=== PATIENT | female | born 1995 | race Caucasian/White ===

== ENCOUNTER 2019-07-18 21:08 | Emergency (ER) | payer MEDICAID, SELFPAY ==
[2019-07-18 21:22] VITALS: BP 105/67; PULSE 93; RESP 18; TEMP 36.6; O2SAT 99; BMI 30.9
--- NOTE | 2019-07-18 21:33 | ED_ITS ---
Entered by Callie Manzanares, acting as scribe for Jose Carlos Michel DO HPI - Female Genitourinary General: Chief complaint: Urogenital-Female Stated complaint: PREG & CRAMPING Time Seen by Provider: 07/18/19 21:33 Source: patient Mode of arrival: ambulatory Limitations: no limitations History of Present Illness: HPI Narrative: 24 y/o female presents to the ED with complaint of abd cramping. Pt states she knows she is 6.5 weeks . She states she has PCOS and this is her first . She denies bleeding. Pt states this has been going on for 3 days but it seems to be worse today. She reports bloating and diarrhea. Associated symptoms: Reports abdominal pain (cramping); Deny headache(s) or nausea Review of Systems Const: Denies: fever or chills Eyes: Denies: change in vision or blurry vision ENMT: Denies: painful swallowing, swelling of lips/tongue, bleeding gums, dental pain, Change in hearing, nose bleeds, post nasal drip or facial/sinus pain Card: Denies: chest pain, palpitations, irregular heart rhythm, edema, swelling of feet/ankles, shortness of breath on exertion or shortness of breath when lying down Resp: Denies: shortness of breath, productive cough, non-productive cough or wheezing GI: Reports: abdominal pain (cramping) and diarrhea; Denies: nausea, vomiting, rectal pain, blood in stool or black tarry stool : Denies: painful urination, urinary frequency, urinary urgency or blood in urine Musc: Denies: neck pain, back pain, redness or joint warmth Skin/Breast: Denies: rash, itching or redness Neuro: Denies: headache, dizziness, vertigo, confusion or seizure-like activity Psych: Denies: anxiety, visual hallucinations or auditory hallucinations PFSH ED PFSH: Statuses (acute, chronic, etc) shown below reflect problem list status as previously entered and may not be historically accurate Social History Smoking and tobacco status: current every day smoker Physical Exam Const: COMMON NORMALS: alert GENERAL APPEARANCE: well developed ORIENTATION/CONSCIOUSNESS: Yes awake, Yes oriented to person, Yes oriented to place and Yes oriented to time HENMT: COMMON NORMALS: normocephalic, external ears normal, external nose normal and moist oral mucous membranes HEAD & SCALP: normocephalic; no scalp tenderness FACE & SINUS: normal facial exam NOSE: external nose normal and no nasal discharge EXTERNAL EAR: Yes external ears normal MOUTH: tongue normal TEETH & GINGIVA: no abnormal tooth and associated gingiva THROAT: posterior oropharynx normal; no peritonsillar mass Eye: COMMON NORMALS: PERRL, EOMs intact bilaterally and conjunctivae normal EYELID: eyelids normal CONJUNCTIVA: Yes conjunctivae normal PUPIL: Yes PERRL Neck/C-Spine: COMMON NORMALS: full ROM GENERAL: No tracheal deviation CERVICAL SPINE: Yes normal cervical lordosis, No cervical spine tenderness, No step off deformity, No paracervical muscle tenderness and No paracervical muscle spasm Chest: COMMONS NORMALS: inspection of chest normal CHEST: Yes symmetrical chest wall rise and No tenderness Resp: COMMON NORMALS: clear to auscultation bilaterally EFFORT & INSPECTION: No tachypneic, No respiratory distress, No retractions, No uses accessory muscles and No tracheal deviation AUSCULTATION: clear to auscultation bilaterally, no rhonchi, no wheezes and lung sounds not diminished Cardio: COMMON NORMALS: regular rate and regular rhythm RATE: regular rate RHYTHM: regular rhythm HEART SOUNDS: no murmurs PERIPHERAL PULSES: radial pulses present GI: INSPECTION: No abdominal distension AUSCULTATION: No hyperactive bowel sounds and No hypoactive bowel sounds PALPATION: No tender, No guarding and No rigid PERCUSSION: no dullness to percussion and no tympanic to percussion : COMMON NORMALS: Yes no CVA tenderness BLADDER/KIDNEY EXAM: Yes no CVA tenderness Back/Pelvis: COMMON NORMALS: no CVA tenderness PELVIS: Yes no pain with anterior-posterior compression and Yes no pain with lateral compression Neuro: SENSORIUM/ORIENTATION: Yes alert, Yes oriented to person, Yes oriented to place and Yes oriented to time Psych: COMMON NORMALS: mental status grossly normal and speech normal SPEECH: Yes normal speech Skin: COMMON NORMALS: no rashes or lesions noted GENERAL SKIN EXAM: no rashes or lesions noted Course ED course: 24-year-old now G1, P0 female presents believing she 6-1/2 weeks . She had been cramping, without vaginal discharge or bleeding. Serum quantitative, and ultrasound dates are similar at 4-1/2 weeks. There is a tiny gestational sac appearing structure in the uterus, showing a likely an IUP, although ectopic cannot be fully ruled out at this age. Other laboratory is benign. She will go home for close outpatient follow-up. Vital Signs: Vital signs: Vital Signs Temperature 98 F 07/18/19 21:22 Pulse Rate 73 07/18/19 23:54 Respiratory Rate 16 07/18/19 23:54 Blood Pressure 95/69 07/18/19 23:54 Pulse Oximetry 99 07/18/19 23:54 MDM - Female Lab Data: Labs: Lab Results 07/18/19 07/18/19 07/18/19 Range/Units 22:07 22:07 22:13 WBC 9.2 (4.0-10.0) 10^3/ uL RBC 4.69 (4.1-5.3) 10^6/u L Hgb 13.3 (11.5-15.3) g/dL Hct 41.7 (37.0-47.0) % MCV 88.9 (81-99) fL MCH 28.4 (28.0-34.0) pg MCHC 31.9 (30.0-36.0) g/dL RDW 11.8 L (12.1-15.1) % Plt Count 342 (130-400) 10^3/c mm MPV 9.3 (7.4-10.4) fL Neut % (Auto) 52.0 % Lymph % (Auto) 37.3 % Bertie % (Auto) 7.7 % Eos % (Auto) 2.4 % Baso % (Auto) 0.4 % Neut # (Auto) 4.8 (1.8-7.7) 10^3/u L Lymph # (Auto) 3.5 (0.8-4.8) 10^3/u L Bertie # (Auto) 0.7 (0.2-0.9) 10^3/u L Eos # (Auto) 0.2 (0.0-0.8) 10^3/u L Baso # (Auto) 0.0 (0.0-0.1) 10^3/u L Nucleated RBC % (a uto) 0 % Nucleated RBCs # 0.0 /100WBC Sodium 138 (136-145) mmol/L Potassium 3.8 (3.5-5.1) mmol/L Chloride 102 (98-107) mmol/L Carbon Dioxide 25 (22-29) mmol/L Anion Gap 14.8 (5-19) BUN 9 (6-20) mg/dL Creatinine 0.6 (0.5-0.9) mg/dL GFR Calculation 120.8 (90-130) mL/min Glucose 82 (74-109) mg/dL Calcium 10.2 H (8.6-10.0) mg/Dl Total Bilirubin 0.2 (0.15-1.2) mg/dL AST 16 (0-32) U/L ALT 16 (0-33) U/L Alkaline Phosphata se 71 (35-105) IU/L Total Protein 7.6 (6.6-8.7) g/dL Albumin 4.5 (3.5-5.2) g/dL Globulin 3.1 (1.3-4.6) g/dL Lipase 29 (13-60) U/L Ser , Jase i-Qnt 563.40 mIU/mL Urine Color (Yellow) Urine Appearance (CLEAR) Urine pH (5-7) Ur Specific Gravit y (1.005-1.030) Urine Protein (Negative) Urine Glucose (UA) (Normal) Urine Ketones (Negative) Urine Occult Blood (Negative) Urine Nitrate (Negative) Urine Bilirubin (NEGATIVE) Urine Urobilinogen (Negative) mg/dL Ur Leukocyte Theresa ase (Negative) Blood Type O Positive 07/18/19 Range/Units 22:26 WBC (4.0-10.0) 10^3/ uL RBC (4.1-5.3) 10^6/u L Hgb (11.5-15.3) g/dL Hct (37.0-47.0) % MCV (81-99) fL MCH (28.0-34.0) pg MCHC (30.0-36.0) g/dL RDW (12.1-15.1) % Plt Count (130-400) 10^3/c mm MPV (7.4-10.4) fL Neut % (Auto) % Lymph % (Auto) % Bertie % (Auto) % Eos % (Auto) % Baso % (Auto) % Neut # (Auto) (1.8-7.7) 10^3/u L Lymph # (Auto) (0.8-4.8) 10^3/u L Bertie # (Auto) (0.2-0.9) 10^3/u L Eos # (Auto) (0.0-0.8) 10^3/u L Baso # (Auto) (0.0-0.1) 10^3/u L Nucleated RBC % (a uto) % Nucleated RBCs # /100WBC Sodium (136-145) mmol/L Potassium (3.5-5.1) mmol/L Chloride (98-107) mmol/L Carbon Dioxide (22-29) mmol/L Anion Gap (5-19) BUN (6-20) mg/dL Creatinine (0.5-0.9) mg/dL GFR Calculation (90-130) mL/min Glucose (74-109) mg/dL Calcium (8.6-10.0) mg/Dl Total Bilirubin (0.15-1.2) mg/dL AST (0-32) U/L ALT (0-33) U/L Alkaline Phosphata se (35-105) IU/L Total Protein (6.6-8.7) g/dL Albumin (3.5-5.2) g/dL Globulin (1.3-4.6) g/dL Lipase (13-60) U/L Ser , Jase i-Qnt mIU/mL Urine Color Yellow (Yellow) Urine Appearance Clear (CLEAR) Urine pH 6 (5-7) Ur Specific Gravit y 1.010 (1.005-1.030) Urine Protein Neg (Negative) Urine Glucose (UA) Norm (Normal) Urine Ketones Negative (Negative) Urine Occult Blood Neg (Negative) Urine Nitrate Negative (Negative) Urine Bilirubin Neg (NEGATIVE) Urine Urobilinogen Norm (Negative) mg/dL Ur Leukocyte Theresa ase Negative (Negative) Blood Type Discharge Plan Discharge Patient Disposition: Home, Self-Care Clinical Impression: Qualifiers: Weeks of gestation: less than 8 weeks Qualified Code(s): Z3A.01 - Less than 8 weeks gestation of Condition: Stable Prescriptions: No Action No Known Home Medications RF: 0 Discharge Orders: Discharge Order (Routine); Ordered 07/18/19 Ordered By: Jose Carlos Michel Discharge Diet: Usual diet Discharge Activity: Resume usual activity Patient Instructions: (ED) Activity Restrictions/Additional Instructions: Return for bleeding or increased discharge, fever, vomiting liquids or medications, other concerning symptoms. Discharge Date/Time: 07/19/19 00:00 Coding Level of Care Code ED [employer] Operations Consultant for Niko Fwcesia The documentation recorded by the Leighton jett Ashley, accurately reflects the service I personally performed and the decisions made by Anand messer Jeremy John, DO Jul 18, 2019 21:08
--- NOTE | 2019-07-18 21:41 | USR_ITS ---
PROCEDURE INFORMATION: Exam: US First Trimester, Transabdominal and US , Transvaginal Exam date and time: 07/18/2019 9:51 PM Age: 24 years old Clinical indication: complicated by abdominal or pelvic pain; Right lower quadrant; First trimester; Gestational age or lmp: Hcg 563.40 ; Patient HX: no surgeries. Additional info: PT thinks pain more on RT. %. LMP 06/01/2019. TECHNIQUE: Imaging protocol: Real-time transabdominal obstetrical ultrasound of the maternal pelvis and a first trimester , less than 14 weeks 0 days, with image documentation. Transvaginal imaging was used for better evaluation of the fetus and adnexa. COMPARISON: No relevant prior studies available. FINDINGS: There is a 2 mm fluid collection within the uterus that may represent a very early gestational sac. No definite yolk sac visible to confirm that this is a true gestational sac. Size would suggest gestational age of between four and five weeks. Small amount of cul-de-sac and right adnexal fluid. Small complex cyst in the right ovary, measuring 12 X. 15 mm, possibly corpus luteum. Maternal ovaries/adnexa otherwise appear essentially unremarkable. Blood flow detected in each ovary. The sonographic appearance alone is nonspecific. This may represent an early viable intrauterine , less than five weeks gestation. If there is any further question of viability, follow up will be needed. An occult ectopic with a pseudo sac in the uterus is not yet completely excluded. Appropriate clinical follow up is needed. The urinary bladder was not completely evaluated/imaged at this time. Endovaginal scanning provided better visualization/evaluation of the possible gestational sac, and adnexal regions, as discussed above. US/US OB <= 14 weeks fetus [id number] IMPRESSION: 1. Possible very early gestational sac within the uterus. 2. See above discussion and recommendations. 3. Small complex cyst in the right ovary, details above. 4. Small amount of cul-de-sac and right adnexal fluid. 5. Other findings discussed above.
[2019-07-18] MEDS: sodium chloride 0.9% 1,000 ML 999 ML IV (22:04)
[2019-07-18 22:24] LABS: Basophils % 0.4 %; Eosinophils # 0.2 10^3/uL (0.0-0.8); Eosinophils % 2.4 %; Hematocrit 41.7 % (37.0-47.0); Hemoglobin 13.3 g/dL (11.5-15.3); Lymphocytes # 3.5 10^3/uL (0.8-4.8); Lymphocytes % 37.3 %; Mean Corpuscular HGB Conc 31.9 g/dL (30.0-36.0); Mean Corpuscular Hemoglobin 28.4 pg (28.0-34.0); Mean Corpuscular Volume 88.9 fL (81-99); Mean Platelet Volume 9.3 fL (7.4-10.4); Monocytes # 0.7 10^3/uL (0.2-0.9); Monocytes % 7.7 %; Neutrophils # 4.8 10^3/uL (1.8-7.7); Nucleated Red Blood Cells % 0 %; Platelet Count 342 10^3/cmm (130-400); Red Blood Count 4.69 10^6/uL (4.1-5.3); Red Cell Distribution Width 11.8 % (12.1-15.1); White Blood Count 9.2 10^3/uL (4.0-10.0)
[2019-07-18 22:48] LABS: Alanine Aminotransferase 16 U/L (0-33); Albumin Level 4.5 g/dL (3.5-5.2); Alkaline Phosphatase 71 IU/L (35-105); Chloride 102 mmol/L (98-107); Potassium 3.8 mmol/L (3.5-5.1); Sodium 138 mmol/L (136-145)
[2019-07-18 23:13] LABS: Add Urine Microscopic? NO; Bilirubin Urine Neg (NEGATIVE); Blood Urine Neg (Negative); Glucose Urine UA Norm (Normal); Ketones Urine Negative (Negative); Nitrate Urine Negative (Negative); Protein Urine Neg (Negative); Urine Appearance Clear (CLEAR); Urine Color Yellow (Yellow); pH Urine 6 (5-7)
[2019-07-18 23:14] LABS: Leukocyte Esterase Urine Negative (Negative); Urobilinogen Urine Norm (Negative)
[2019-07-18 23:16] LABS: Anion Gap 14.8 (5-19); Aspartate Amino Transferase 16 U/L (0-32); Blood Urea Nitrogen 9 mg/dL (6-20); Calcium 10.2 mg/Dl (8.6-10.0); Carbon Dioxide 25 mmol/L (22-29); Globulin 3.1 g/dL (1.3-4.6); Glomerular Filtration Rate 120.8 mL/min (90-130); Glucose 82 mg/dL (74-109); Lipase 29 U/L (13-60); Total Bilirubin 0.2 mg/dL (0.15-1.2); Total Protein 7.6 g/dL (6.6-8.7)
[2019-07-18 23:54] VITALS: BP 95/69; PULSE 73; RESP 16; O2SAT 99
== END 2019-07-19 | disposition home or self-care (01) ==
PROVIDERS: Emergency Provider Emergency Medicine
DX: O26.891 Other specified pregnancy related conditions, first trimester (principal); R10.9 Unspecified abdominal pain; Z3A.01 Less than 8 weeks gestation of pregnancy; O99.331 Smoking (tobacco) complicating pregnancy, first trimester; F17.210 Nicotine dependence, cigarettes, uncomplicated
CPT/HCPCS: 76801; 80053; 81003; 83690; 84702; 85025; 86900; 87491; 87591; 96360; 99282; J7030

== ENCOUNTER → 2019-07-22 09:28 | Outpatient (BNVA) | payer MEDICAID, SELFPAY | PROVIDERS: Referring Provider Nurse Practitioner Women's Health; Visit Provider Nurse Practitioner Women's Health | DX: Z32.01 Encounter for pregnancy test, result positive (principal) | CPT/HCPCS: 36415; 84702 ==

== ENCOUNTER → 2019-07-30 12:58 | Outpatient (BNVA) | payer MEDICAID, SELFPAY | PROVIDERS: Visit Provider Obstetrics & Gynecology | DX: Z34.91 Encounter for supervision of normal pregnancy, unspecified, first trimester (principal) | CPT/HCPCS: 76817 ==

== ENCOUNTER → 2019-08-05 09:26 | Outpatient (BNVA) | payer MEDICAID, SELFPAY | PROVIDERS: Visit Provider Nurse Practitioner Women's Health | DX: Z01.89 Encounter for other specified special examinations (principal) | CPT/HCPCS: 84315 ==

== ENCOUNTER → 2021-03-01 14:00 | Outpatient (BNVA) | payer MEDICAID, SELFPAY | PROVIDERS: Visit Provider Nurse Practitioner Women's Health | DX: N89.8 Other specified noninflammatory disorders of vagina (principal); R10.2 Pelvic and perineal pain; L73.2 Hidradenitis suppurativa | CPT/HCPCS: 87070; 87205; 87491; 87591; 87661 ==

== ENCOUNTER → 2021-03-06 11:25 | Outpatient (BNVA) | payer MEDICAID, SELFPAY | PROVIDERS: Visit Provider Nurse Practitioner Women's Health | DX: L73.2 Hidradenitis suppurativa (principal) | CPT/HCPCS: 80048 ==

== ENCOUNTER → 2021-04-28 08:15 | Outpatient (BNVA) | payer MEDICAID, SELFPAY | PROVIDERS: Visit Provider Nurse Practitioner Women's Health | DX: L73.2 Hidradenitis suppurativa (principal) | CPT/HCPCS: 80048 ==

== ENCOUNTER → 2021-07-21 09:12 | Outpatient (BNVA) | payer BC, MEDICAID, SELFPAY | PROVIDERS: Visit Provider Nurse Practitioner Women's Health | DX: Z20.2 Contact with and (suspected) exposure to infections with a predominantly sexual mode of transmission (principal); N89.8 Other specified noninflammatory disorders of vagina; L73.2 Hidradenitis suppurativa; B37.3 Candidiasis of vulva and vagina; N90.60 Unspecified hypertrophy of vulva; E66.09 Other obesity due to excess calories; Z68.32 Body mass index [BMI] 32.0-32.9, adult | CPT/HCPCS: 87491; 87591; 87661 ==

== ENCOUNTER 2022-12-21 09:47 | Emergency (ER) | payer MEDICAID, SELFPAY ==
[2022-12-21 09:53] VITALS: BP 120/83; PULSE 77; RESP 16; TEMP 36.6; O2SAT 98
--- NOTE | 2022-12-21 09:58 | CT_ITS ---
WS: [id number] CT HEAD NONCONTRAST HISTORY: h/a TECHNIQUE: Contiguous axial imaging performed through the brain in 2.5 mm imaging. Bone and soft tiss ue windows. Sagittal and coronal reformats reviewed. All CT scans at [facility] use at least one of these dose optimization techniques: automated exposure control; mA and/or kV adjustment per pa tient size (includes targeted exams where dose is matched to clinical indication); or iterative recon struction. DLP: 995.59 mGy.cm COMPARISON: None available. No acute intracranial hemorrhage, midline shift or mass effect. No atrophy or prior infarcts or herniation. Ventricles: Normal size with no hydrocephalus. Very mild ectopia of the cerebellar tonsils. Paranasal sinuses: Moderate mucoperiosteal thickening throughout the ethmoid air cells, LEFT greater than RIGHT. Mucoperiosteal disease extends into the LEFT frontal ethmoid recess. There is a small air -fluid level in the LEFT maxillary sinus. Mild mucoperiosteal thickening in the sphenoid sinuses. Mastoid air cells: Well pneumatized. Calvarium and scalp: Skull is intact with no soft tissue edema or swelling. CT/CT head wo con* [id number] IMPRESSION: 1. No acute brain pathology. 2. Very minimal ectopia cerebellar tonsils. 3. Extensive paranasal sinus disease. Most significant involving the ethmoid a ir cells.
--- NOTE | 2022-12-21 10:01 | ED_ITS ---
HPI - Headache General: Chief Complaint: Headache Stated Complaint: sent by for headache, nausea, vomiting Time Seen by Provider: 12/21/22 09:52 Source: patient Mode of arrival: ambulatory Limitations: no limitations History of Present Illness: Patient presents to the emergency department today for evaluation treatment of headache. Patient states she was woken this morning at approximately 4 AM with severe headache. She states headache has not improved and is actually worsened. It has not responded to Tylenol and ibuprofen at home. Patient is reporting photophobia, nausea, and a couple episodes of vomiting this morning due to her headache pain. She reports pain in the frontal region of the head as well as the back and base of the skull. Patient denies any trauma yesterday. She state s she was staying well-hydrated yesterday. Patient has had a history of headaches in the past but none have been as severe and she has never experienced photophobia. She states she went to a walk-in clinic today and was immediately sent here to the emergency department. Patient reports having had severe sinus symptoms over the last 2 weeks as well. She reports blowing her nose this morning and getting a trace amount of blood on the tissue. Review of Systems General: Reports: 10 or more systems reviewed and unremarkable except in HPI and below PFSH ED PFSH: Medical History Hidradenitis Migraine No pertinent past medical history neghx: htn,dm,thyroid,dvt/pe PCP: None PCOS (polycystic ovarian syndrome) Psychiatric care Surgical History No history of previous surgery Family History Denies family history of Colon cancer Ovarian cancer Diabetes Heart disease Hypercholesteremia Breast cancer Hypertension Uterine cancer Thyroid disease Stroke Social History Smoking and tobacco status: former smoker Quit status (tobacco): has quit using tobacco Year quit tobacco: 2019 Second hand smoke exposure: No Smoking risk assessment/counseling performed?: No Alcohol intake: former Desire information about alcohol rehabilitation?: No Counseling given: Yes Substance/Drug Use: never Desire information about substance/drug rehabilitation?: No Counseling given: No Physical Exam Const: COMMON NORMALS: no acute distress, patient oriented x3 and alert OTHER: Patient is afebrile with stable vital signs. Eye: COMMON NORMALS: Equal, round and reactive pupils present, EOMs intact bilaterally and conjunctivae normal CONJUNCTIVA: Yes conjunctivae normal PUPIL: Yes Equal, round and reactive pupils present Neck/C-Spine: COMMON NORMALS: no JVD Lymph: LYMPHATIC: no lymphadenopathy noted Resp: COMMON NORMALS: normal respiratory effort, No retractions and No use of accessory muscles Cardio: COMMON NORMALS: no JVD and regular rate RATE: regular rate : COMMON NORMALS: Yes no CVA tenderness BLADDER/KIDNEY EXAM: Yes no CVA tenderness Back/Pelvis: COMMON NORMALS: no CVA tenderness, thoracic and lumbar spine normal to inspection and thoraco-lumbar ROM normal Extremity: COMMON NORMALS: normal to inspection, full ROM and no pedal edema NARRATIVE EXTREMITY EXAM: Patient is independently ambulatory and weightbearing in the emergency department. Patient is able to perform chin to chest and indicates pain is improved in the back of her head with this range of motion. Patient is not tender in the neck region-pain is indicated in the occipital region on exam. Neuro: COMMON NORMALS: patient oriented x3 SENSORIUM/ORIENTATION: Yes alert Psych: COMMON NORMALS: mental status grossly normal, Normal thought process present, speech normal, activity/motor behavior normal, denies homicidal ideation and denies suicidal ideation SPEECH: Yes normal speech THOUGHT PROCESS: Normal thought process present Skin: COMMON NORMALS: no rashes or lesions noted, turgor normal and no petech iae GENERAL SKIN EXAM: no rashes or lesions noted and turgor normal Course Vital Signs: Vital signs: Vital Signs Temperature 97.8 F 12/21/22 09:53 Pulse Rate 78 12/21/22 10:02 Respiratory Rate 14 12/21/22 10:02 Blood Pressure 120/83 12/21/22 10:02 Pulse Oximetry 98 12/21/22 10:02 Oxygen Delivery Me thod Room Air 12/21/22 10:02 [facility] - Headache Medical Decision Making Patient presented to the emergency department today after complaining of worst headache of her life had a walk-in clinic. Given that patient has a history of headaches but states this feels different and is the worst headache she is ever had we did proceed on with gold standard evaluation including lab work and imaging which patient agreed to. CT showed no signs of intracranial abnormality concerning for any type of bleed or mass but, was confirmed to have an extensive and severe sinus infection involving multiple sinus cavities. Patient's lab work confirms decreased concern for meningitis as she has no elevated white blood cell count, patient vital signs of been stable, physical examination revealed no meningeal signs. Patient was treated with fluids and medication to help with nausea and headache symptoms but, discussed with patient that she needs to be started on antibiotics to help start clearing her sinus infection. Antibiotics were prescribed but also encouraged some other [id number] symptomatic treatments to help over the next few days. Patient was given return precautions for any new onset fever, continued or worsening vomiting, or change or worsening of her headache. Patient verbalized understanding and agreement to treatment plan. Differential Diagnosis Likely migraine, subarachnoid hemorrhage, headache, meningitis and sinusitis Lab Data 12/21/22 10:06 12/21/22 10:[address] 12/21/22 09:58 IMPRESSION: 1. No acute brain pathology. 2. Very minimal ectopia cerebellar tonsils. 3. Extensive paranasal sinus disease. Most significant involving the ethmoid air cells. Laboratory Results WBC 7.2 10^3/uL (4.0-10.0) 12/21/22 10:06 RBC 4.60 10^6/uL (4.1-5.3) 12/21/22 10:06 Hgb 13.7 g/dL (11.5-15.3) 12/21/22 10:06 Hct 41.9 % (37.0-47.0) 12/21/22 10:06 MCV 91.1 fl (81-99) 12/21/22 10:06 MCH 29.8 pg (28.0-34.0) 12/21/22 10:06 MCHC 32.7 g/dL (30.0-36.0) 12/21/22 10:06 RDW 11.9 % (12.1-15.1) L 12/21/22 10:06 Plt Count 309 10^3/cmm (130-400) 12/21/22 10:06 MPV 8.8 fL (7.4-10.4) 12/21/22 10:06 Neut % (Auto) 65.3 % 12/21/22 10:06 Lymph % (Auto) 29.5 % 12/21/22 10:06 [place] % (Auto) 3.9 % 12/21/22 10:06 Eos % (Auto) 0.6 % 12/21/22 10:06 Baso % (Auto) 0.6 % 12/21/22 10:06 Neut # (Auto) 4.68 10^3/uL (1.8-7.7) 12/21/22 10:06 Lymph # (Auto) 2.1 10^3/uL (0.8-4.8) 12/21/22 10:06 [place] # (Auto) 0.3 10^3/uL (0.2-0.9) 12/21/22 10:06 Eos # (Auto) 0.0 10^3/uL (0.0-0.8) 12/21/22 10:06 Baso # (Auto) 0.0 10^3/uL (0.0-0.1) 12/21/22 10:06 Nucleated RBC % (auto) 0 % 12/21/22 10:06 Nucleated RBCs # 0.0 /100WBC 12/21/22 10:06 Sodium 138 mmol/L (136-145) 12/21/22 10:06 Potassium 4.0 mmol/L (3.5-5.1) 12/21/22 10:06 Chloride 103 mmol/L (98-107) 12/21/22 10:06 Carbon Dioxide 25 mmol/L (22-29) 12/21/22 10:06 Anion Gap 14.0 (5-19) 12/21/22 10:06 BUN 12 mg/dL (6-20) 12/21/22 10:06 Creatinine 0.5 mg/dL (0.5-0.9) 12/21/22 10:06 GFR Calculation 145.9 mL/min (90-130) H 12/21/22 10:06 Glucose 99 mg/dL (65-115) 12/21/22 10:06 Calculated Osmolality 286 mOsm/kg (285-295) 12/21/22 10:06 Calcium 9.6 mg/dL (8.5-10.5) 12/21/22 10:06 Total Bilirubin 0.3 mg/dL (0.15-1.2) 12/21/22 10:06 AST 20 U/L (0-32) 12/21/22 10:06 ALT 29 U/L (0-33) 12/21/22 10:06 Alkaline Phosphatase 83 U/L (35-105) 12/21/22 10:06 Total Protein 7.7 g/dL (6.6-8.7) 12/21/22 10:06 Albumin 4.3 g/dL (3.5-5.2) 12/21/22 10:06 Globulin 3.4 g/dL (1.3-4.6) 12/21/22 10:06 Discharge Plan Discharge Patient Disposition: Home Clinical Impression: Sinusitis Condition: Stable Prescriptions: New amoxicillin-pot clavulanate 875-125 mg tablet 1 tab PO BID Qty: 20 0RF No Action Kyleena 17.5 mcg/24 hrs (5 yrs) 19.5 mg intrauterine device intrauterine phentermine [Adipex-P] 37.5 mg tablet 37.5 mg PO DAILY Rx Instructions: must administer 30 minutes before or 1-2 hours after breakfast duloxetine [Cymbalta] 30 mg capsule,delayed release(DR/EC) 30 mg PO DAILY Qty: 30 0RF duloxetine 60 mg capsule,delayed release(DR/EC) 60 mg PO DAILY Qty: 30 2RF Rx Instructions: Start after 1 month on 30 mg trazodone 50 mg tablet 50 mg PO .HS PRN (Reason: insomnia) Qty: 30 2RF Discharge Orders: Discharge ED (Routine); Ordered 12/21/22 Ordered By: Jennifer Martini Discharge Diet: Usual diet Discharge Activity: Increase activity as tolerated Patient Instructions: Sinusitis - Acute Activity Restrictions/Additional Instructions: Lab work today shows no acute concerns for any type of spontaneous bleeding or infection causing your symptoms. The CT scan of your head reveals no intracranial concerns but, CT was able to confirm a severe sinus infection involving multiple sinus cavities. The CT was actually read extensive and severe sinusitis which can correlate with your frontally located headache. We have treated you for headache pain but, need to start you on an antibiotic to help clear the sinus infection. I encourage you to continue using antihistamines and ibuprofen at home while the antibiotic begins to work. It may take 24 to 48 hours to really notice significant improvement of your symptoms. Follow-up with your primary care next week for recheck or, if for any reason you spike a fever, have multiple episodes of vomiting, or unable to move your head at all due to severe pain you should be seen and reevaluated back here in the ER. Coding Level of Care Code ED Kitchen Worker for Niko Wilkes
[2022-12-21 10:02] VITALS: BP 120/83; PULSE 78; RESP 14; O2SAT 98
[2022-12-21] MEDS: sodium chloride 0.9% 1,000 ML 999 ML IV (10:11)
[2022-12-21] MEDS: metoclopramide 5 mg/mL SDV 2 mL 10 MG IVP (10:12)
[2022-12-21 10:20] LABS: Basophils % 0.6 %; Eosinophils % 0.6 %; Hematocrit 41.9 % (37.0-47.0); Hemoglobin 13.7 g/dL (11.5-15.3); Lymphocytes # 2.1 10^3/uL (0.8-4.8); Lymphocytes % 29.5 %; Mean Corpuscular HGB Conc 32.7 g/dL (30.0-36.0); Mean Corpuscular Hemoglobin 29.8 pg (28.0-34.0); Mean Corpuscular Volume 91.1 fl (81-99); Mean Platelet Volume 8.8 fL (7.4-10.4); Monocytes # 0.3 10^3/uL (0.2-0.9); Monocytes % 3.9 %; Neutrophils # 4.68 10^3/uL (1.8-7.7); Neutrophils % 65.3 %; Nucleated Red Blood Cells % 0 %; Platelet Count 309 10^3/cmm (130-400); Red Cell Distribution Width 11.9 % (12.1-15.1); White Blood Count 7.2 10^3/uL (4.0-10.0)
[2022-12-21 10:33] LABS: Alanine Aminotransferase 29 U/L (0-33); Albumin Level 4.3 g/dL (3.5-5.2); Alkaline Phosphatase 83 U/L (35-105); Aspartate Amino Transferase 20 U/L (0-32); Blood Urea Nitrogen 12 mg/dL (6-20); Calcium 9.6 mg/dL (8.5-10.5); Carbon Dioxide 25 mmol/L (22-29); Chloride 103 mmol/L (98-107); Globulin 3.4 g/dL (1.3-4.6); Glomerular Filtration Rate 145.9 mL/min (90-130); Glucose 99 mg/dL (65-115); Osmolality Calculated 286 mOsm/kg (285-295); Sodium 138 mmol/L (136-145); Total Bilirubin 0.3 mg/dL (0.15-1.2); Total Protein 7.7 g/dL (6.6-8.7)
[2022-12-21] MEDS: ketorolac 30 mg/mL INJ 15 MG IVP (11:03)
[2022-12-21] MEDS: diphenhydrAMINE 50 mg/mL SDV 1mL IVP (11:03)
[2022-12-21 11:11] LABS: HCG Qualitative Urine. Negative (Negative)
[2022-12-21 11:17] LABS: Add Urine Microscopic? YES; Amorphous Sediment Urine 1+ /hpf; Bacteria Urine TRACE /hpf; Bilirubin Urine Neg (Negative); Blood Urine Neg (Negative); Glucose Urine UA Norm (Normal); Ketones Urine Negative (Negative); Leukocyte Esterase Urine Negative (Negative); Mucus Urine 1+ /hpf; Nitrate Urine Negative (Negative); Protein Urine Neg (Negative); Specific Gravity, Urine 1.015 (1.005-1.030); Squamous Epithelial Cell Urine RARE /hpf (0-5); Urine Appearance Cloudy (CLEAR); Urine Color Yellow (Yellow); Urobilinogen Urine 1 mg/dL (Negative); pH Urine 7 (5-7)
--- NOTE | 2023-01-10 14:40 | DCPLANNER ---
Patient was called due to no primary care physician - patient declined at this time.
== END 2022-12-21 11:48 | disposition home or self-care (01) ==
PROVIDERS: Emergency Provider Physician Assistant
DX: J32.9 Chronic sinusitis, unspecified (principal); Z87.891 Personal history of nicotine dependence
CPT/HCPCS: 70450; 80053; 81001; 81025; 85025; 96374; 96375; 99285; J1200; J1885; J2765; J7030

== ENCOUNTER → 2024-10-14 16:27 | Outpatient (BNVA) | payer SELFPAY | PROVIDERS: Visit Provider Podiatrist Foot & Ankle Surgery | DX: L60.3 Nail dystrophy (principal) | CPT/HCPCS: 36415; 80053 ==

== ENCOUNTER → 2024-11-11 16:00 | Outpatient (BNVA) | payer SELFPAY | PROVIDERS: Visit Provider Podiatrist Foot & Ankle Surgery | DX: L60.3 Nail dystrophy (principal) | CPT/HCPCS: 36415; 80053 ==

== ENCOUNTER 2025-04-27 08:49 | Emergency (ER) | payer SELFPAY ==
--- OUTSIDE RECORDS SUMMARY | 2023-12-30 11:00 | XMS_ITS ---
Author Organization [facility] Address [address] [place] [address] Care Team Providers Care Drapery And Upholstery Estimator Name Role Phone ARCELIA, NIRAV Primary Care Provider Unavailabl e Gallegos, Nirav Unavailable [phone] REASON FOR VISIT weight management Encounters Encounter Location Date Provider Diagnosis [facility] Office [address] [place] [phone] 12/30/2023 Nirav Gallegos Plan Of Treatment No Information Progress Notes * Kiana VILLEGAS DDOB: [birth year] (29 yo F)Acc No.[id number]:12/30/2023 Progress Notes Patient: Kiana Hale Provider: Richard Gallegos RETAIL LOSS PREVENTION OFFICER :1995 A ge:28 Y S ex:Female Date:12/30/2023 Address:[address] [place], [place] [id number] Pcp:NIRAV GALLEGOS Subjective: * Chief Complaints: * W eight management Care Plan Details* * Electronic signature of Keshav Gallegos HABILITATIVE INTERVENTIONIST on 04/27/2025 at 09:52 AM CDT Sign off status: Pending * Provider: Richard Gallegos RETAIL LOSS PREVENTION OFFICER Date: 12/30/2023 Generated for Jeffrey villalobos/Umer/eTransmitting on: 1 09:52 AM CDT
--- OUTSIDE RECORDS SUMMARY | 2024-02-20 06:00 | XMS_ITS ---
Author Organization [facility] Address [address] [place] [address] Care Team Providers Care Housing Grant Analyst Name Role Phone ARCELIA, NIRAV Primary Care Provider Unavailabl e Gallegos, Nirav Unavailable [phone] REASON FOR VISIT weight management Encounters Encounter Location Date Provider Diagnosis [facility] [address] [place] [id number] 02/20/2024 Nirav Gallegos Plan Of Treatment No Information Progress Notes * Kiana VILLEGAS DDOB: [birth year] (29 yo F)Acc No.[id number]:02/20/2024 Progress Notes Patient: Kiana Hale Provider: Richard Gallegos ELECTRONICS INSPECTOR :1995 A ge:28 Y S ex:Female Date:02/20/2024 Address:[address] [place], [place] [id number] Pcp:NIRAV GALLEGOS Subjective: * Chief Complaints: * W eight management Care Plan Details* * Electronic signature of Keshav Gallegos OUTDOOR STUDIES DIRECTOR on 04/27/2025 at 09:52 AM CDT Sign off status: Pending * Provider: Richard Gallegos ELECTRONICS INSPECTOR Date: 0 02/20/2024 Generated for Jeffrey villalobos/Umer/eTransmitting on: 1 09:52 AM CDT
[2025-04-27 08:54] VITALS: BP 119/73; PULSE 63; RESP 16; TEMP 36.9; BMI 33.9
--- NOTE | 2025-04-27 09:02 | US_ITS ---
WS: [id number] ULTRASOUND ABDOMEN LIMITED CLINICAL INFORMATION: RUQ pain COMPARISON: None. FINDINGS: Liver Size: Normal. Craniocaudal length: 14.5 cm. Echogenicity: Normal. Surface nodularity: None. Mass (size and location): None. Bile ducts Intrahepatic ducts: Normal. Common bile duct diameter: 0.4 cm. Gallbladder Normal. Gallstones: None. Gallbladder sludge: None. Gallbladder wall thickening: None. Pericholecystic fluid: None. Sonographic Orantes sign: Absent. Pancreas Normal as visualized. Right kidney: Normal. Hydronephrosis: None. Size: 11.4 cm x 4.7 cm x 3.9 cm. Abdominal aorta and IVC Visualized portions are normal. Ascites: None. US/US gall bladder [id number] IMPRESSION: 1. Normal liver and gallbladder. 2. No hydronephrosis in the RIGHT kidney.
--- NOTE | 2025-04-27 09:03 | ED_ITS ---
HPI - Abdominal Pain 2 General: Chief Complaint: Abdominal Pain Stated Complaint: sharp upper abd pain Time Seen by Provider: 04/27/25 08:54 Source: patient Mode of arrival: ambulatory Limitations: no limitations History of Present Illness: Patient is a 29-year-old female presents to ED today with a complaint of upper abdominal pain beginning around 3 AM yesterday morning. She does report it awoke her from sleep. She initially said the pain was a band around her upper abdomen with radiation into her back but states it has slowly moved over to her right upper quadrant and is still radiating to her back. She states she has felt nauseous. She has not had any episodes of vomiting. She states for several weeks now, anytime she eats, it runs right through me (diarrhea). She has not been running fevers. No previous abdominal surgeries. She is not complaining of chest pain, shortness of breath, difficulty breathing. MD elicited complaint: abdominal pain Onset (ago): day(s) (yesterday) Pain Consistency: constant Location: LUQ and RUQ Severity: moderate Radiation: none Migration to: no migration Exacerbating factors: nothing Relieving factors: nothing Associated Symptoms: Reports diarrhea and nausea; Denies chills, dysuria, fever(s), hematochezia, hematuria, melena and vomiting Related Data Home Medications ?Medication ?Instructions ?Recorded ?Confirmed levonorgestrel 17.5 mcg/24 hr (up intrauterine 03/01/2 1 11/11/24 to 5 yrs) 19.5mg intrauterine device (Kyleena) phentermine 37.5 mg tablet 37.5 mg PO DAILY 10/16/22 0 11/11/24 (Adipex-P) Previous Rx's ?Medication ?Instructions ?Recorded duloxetine 30 mg capsule,delayed 30 mg PO DAILY #30 ca ps 10/16/22 release (Cymbalta) duloxetine 60 mg capsule,delayed 60 mg PO DAILY #30 ca ps 10/16/22 release trazodone 50 mg tablet 50 mg PO .HS PRN insomnia #3 0 tabs 10/16/22 amoxicillin 875 mg-potassium 1 tab PO BID #20 tabs clavulanate 125 mg tablet clotrimazole-betamethasone 1 1 applic topical BID 4 we eks #15 10/14/24 %-0.05 % topical cream grams terbinafine HCl 250 mg tablet 250 mg PO DAILY #90 tabs 10/14/24 Allergies Allergy/AdvReac Type Severity Reaction Status Date / Time No Known Allergies Allergy Verified 11/11/24 15:18 Review of Systems 2 Const: Denies: fever(s), chills, body aches, fatigue or malaise Card: Denies: chest pain Resp: Denies: dyspnea GI: Reports: abdominal pain, nausea and diarrhea; Denies: vomiting, hematochezia or melena : Denies: flank pain, dysuria or hematuria Musc: Denies: neck pain, back pain, extremity pain, extremity swelling, joint pain, joint swelling or joint redness Skin/Breast: Denies: rash Neuro: Denies: headache(s), numbness in extremities, weakness in extremities, sensory changes or dizziness PFSH ED 2 PFSH: Medical History PCOS (polycystic ovarian syndrome) No pertinent past medical history neghx: htn,dm,thyroid,dvt/pe PCP: None Migraine Hidradenitis Surgical History No history of previous surgery Family History Denies family history of Colon cancer Ovarian cancer Diabetes Heart disease Hypercholesteremia Breast cancer Hypertension Uterine cancer Thyroid disease Stroke Social History Smoking and tobacco/nicotine status: unknown if used tobacco/nicotine Quit status (tobacco/nicotine): has quit using Year quit tobacco: 2019 Second hand smoke exposure: No Alcohol intake: former Substance/Drug Use: never Physical Exam 2 Const: COMMON NORMALS: no acute distress, average body habitus, patient oriented x3, no limitations, healthy appearing, alert and well nourished G ENERAL APPEARANCE: cooperative ORIENTATION/CONSCIOUSNESS: Yes awake, Yes oriented to person, Yes oriented to place and Yes oriented to time HENMT: COMMON NORMALS: normocephalic and atraumatic HEAD & SCALP: normal to inspection, normocephalic and atraumatic Eye: COMMON NORMALS: no scleral icterus Neck/C-Spine: COMMON NORMALS: full ROM, no lymphadenopathy, supple and no meningeal signs Chest: COMMONS NORMALS: normal inspection of the chest Resp: COMMON NORMALS: normal respiratory effort and clear to auscultation bilaterally AUSCULTATION: clear to auscultation bilaterally Cardio: COMMON NORMALS: regular rate and regular rhythm RATE: regular rate RHYTHM: regular rhythm GI: COMMON NORMALS: Normal to inspection, nondistended, normoactive bowel sounds present, Soft to palpation, No hepatosplenomegaly present and no masses INSPECTION: Yes normal to inspection AUSCULTATION: Yes normoactive bowel sounds PALPATION: Yes Soft to palpation, Yes Tenderness to palpation present (GI) (LUQ, RUQ; + Orantes's), No Guarding due to palpation present (GI), No Rigid due to palpation and Yes No hepatosplenomegaly present : COMMON NORMALS: Yes no CVA tenderness BLADDER/KIDNEY EXAM: Yes no CVA tenderness Back/Pelvis: COMMON NORMALS: no CVA tenderness and thoracic and lumbar spine normal to inspection Extremity: COMMON NORMALS: normal to inspection GENERAL: Yes normal exam except as noted Neuro: COMMON NORMALS: patient oriented x3, moves all extremities, no focal motor deficits and no sensory deficits noted SENSORIUM/ORIENTATION: Yes alert, Yes oriented to person, Yes oriented to place and Yes oriented to time MENINGEAL SIGNS: Yes no meningeal signs Skin: COMMON NORMALS: no rashes or lesions noted GENERAL SKIN EXAM: no rashes or lesions noted Course 2 Vital Signs: Vital signs: Vital Signs Temperature 98.4 F 04/27/25 08:54 Pulse Rate 63 04/27/25 08:54 Respiratory Rate 16 04/27/25 08:54 Blood Pressure 119/73 04/27/25 08:54 Oxygen Delivery Me thod Room Air 04/27/25 08:54 MDM - Abdominal Pain Medical Decision Making Patient clinically appears in no acute distress. Her vital signs are stable. Blood work overall is unremarkable. She has a normal white count. Normal LFTs. US gallbladder was obtained due to her complaint of right upper quadrant abdominal pain and this is unremarkable. She was administered a GI cocktail and feels like this somewhat helped with discomfort. Abdomen is nonsurgical. Discussed risk versus benefit of CT imaging and decided to forego on this. Strict return to ED precautions were discussed with patient voiced understanding. Will get her set up with general surgery for further evaluation of her abdominal pain which could include outpatient HIDA scan, EGD, etc. Differential Diagnosis Likely abdominal pain, gastroenteritis and small bowel obstruction Medical Records I reviewed the patient's medical records. Lab Data I reviewed the patient's lab results. 04/27/25 09:00 04/27/25 09:00 Labs/Radiology: Radiology Impressions Gallbladder Ultrasound 04/27/25 09:02 IMPRESSION: 1. Normal liver and gallbladder. 2. No hydronephrosis in the RIGHT kidney. Laboratory Results WBC 6.72 10^3/uL (3.29-11.43) 04/27/25 09:00 RBC 4.36 10^6/uL (3.85-5.65) 04/27/25 09:00 Hgb 12.70 g/dL (11.27-16.99) 04/27/25 09:00 Hct 39.3 % (36-47) 04/27/25 09:00 MCV 90.1 fl (85-98) 04/27/25 09:00 MCH 29.1 pg (27-33) 04/27/25 09:00 MCHC 32.3 g/dL (30-55) 04/27/25 09:00 RDW 12.1 % (12.1-15.1) 04/27/25 09:00 Plt Count 298 10^3/cmm (157-399) 04/27/25 09:00 MPV 9.0 fL (7.4-10.4) 04/27/25 09:00 Neut % (Auto) 59.6 % 04/27/25 09:00 Lymph % (Auto) 32.7 % 04/27/25 09:00 Bartholomew % (Auto) 5.7 % 04/27/25 09:00 Eos % (Auto) 1.2 % 04/27/25 09:00 Baso % (Auto) 0.4 % 04/27/25 09:00 Neut # (Auto) 4.00 10^3/uL (1.8-7.7) 04/27/25 09:00 Lymph # (Auto) 2.2 10^3/uL (0.8-4.8) 04/27/25 09:00 Bartholomew # (Auto) 0.4 10^3/uL (0.2-0.9) 04/27/25 09:00 Eos # (Auto) 0.1 10^3/uL (0.0-0.8) 04/27/25 09:00 Baso # (Auto) 0.0 10^3/uL (0.0-0.1) 04/27/25 09:00 Nucleated RBC % (auto) 0 % 04/27/25 09:00 Nucleated RBCs # 0.0 /100WBC 04/27/25 09:00 Sodium 140 mmol/L (136-145) 04/27/25 09:00 Potassium 4.1 mmol/L (3.5-5.1) 04/27/25 09:00 Chloride 106 mmol/L (98-107) 04/27/25 09:00 Carbon Dioxide 22 mmol/L (22-29) 04/27/25 09:00 Anion Gap 16.1 (5-19) 04/27/25 09:00 BUN 6 mg/dL (6-20) 04/27/25 09:00 Creatinine 0.7 mg/dL (0.5-0.9) 04/27/25 09:00 GFR Calculation 97.6 mL/min (90-130) 04/27/25 09:00 Glucose 94 mg/dL (65-115) 04/27/25 09:00 Calculated Osmolality 287 mOsm/kg (285-295) 04/27/25 09:00 Calcium 9.1 mg/dL (8.5-10.5) 04/27/25 09:00 Total Bilirubin 0.5 mg/dL (0.15-1.2) 04/27/25 09:00 AST 22 U/L (0-32) 04/27/25 09:00 ALT 19 U/L (0-33) 04/27/25 09:00 Alkaline Phosphatase 74 U/L (35-105) 04/27/25 09:00 Total Protein 7.0 g/dL (6.6-8.7) 04/27/25 09:00 Albumin 4.2 g/dL (3.5-5.2) 04/27/25 09:00 Globulin 2.8 g/dL (1.3-4.6) 04/27/25 09:00 Lipase 29 U/L (13-60) 04/27/25 09:00 HCG, Qual Negative (Negative) 04/27/25 09:00 Urine Color Yellow (Yellow) 04/27/25 09:05 Urine Appearance Clear (CLEAR) 04/27/25 09:05 Urine pH 7.0 (5-7) 04/27/25 09:05 Ur Specific [place] 1.022 (1.005-1.030) 04/27/25 09:05 Urine Protein Negative (Negative) 04/27/25 09:05 Urine Glucose (UA) Negative (Normal) 04/27/25 09:05 Urine Ketones Negative (Negative) 04/27/25 09:05 Urine Blood Negative (Negative) 04/27/25 09:05 Urine Nitrate Negative (Negative) 04/27/25 09:05 Urine Bilirubin Negative (Negative) 04/27/25 09:05 Urine Urobilinogen 1.0 mg/dL (Negative) 04/27/25 09:05 Ur Leukocyte Esterase Negative (Negative) 04/27/25 09:05 Amorphous Sediment Not Reportable 04/27/25 09:05 All radiology interpretation(s) finalized by discharge Discharge Plan Discharge Patient Disposition: Home Clinical Impression: Abdominal pain, RUQ Condition: Stable Prescriptions: No Action Kyleena 17.5 mcg/24 hrs (5 yrs) 19.5 mg intrauterine device intrauterine phentermine [Adipex-P] 37.5 mg tablet 37.5 mg PO DAILY Rx Instructions: must administer 30 minutes before or 1-2 hours after breakfast duloxetine [Cymbalta] 30 mg capsule,delayed release(DR/EC) 30 mg PO DAILY Qty: 30 0RF duloxetine 60 mg capsule,delayed release(DR/EC) 60 mg PO DAILY Qty: 30 2RF Rx Instructions: Start after 1 month on 30 mg trazodone 50 mg tablet 50 mg PO .HS PRN (Reason: insomnia) Qty: 30 2RF clotrimazole-betamethasone 1-0.05 % cream 1 applic topical BID 28 Days Qty: 15 0RF terbinafine HCl 250 mg tablet 250 mg PO DAILY Qty: 90 0RF amoxicillin-pot clavulanate 875-125 mg tablet 1 tab PO BID Qty: 20 0RF Discharge Orders: Discharge ED (Routine); Ordered 04/27/25 Ordered By: Mary Ann Millard Patient Instructions: Abdominal Pain (ED), Patient Portal & [place] Instructions Activity Restrictions/Additional Instructions: As we discussed your lab work today was unremarkable. Your gallbladder ultrasound was normal. We discussed CT imaging but have decided to hold off on this time. We will have you follow up with general surgery for further evaluation of your discomfort. We discussed returning to the emergency department for worsening or uncontrollable pain, repetitive episodes of vomiting, vomiting blood, fevers, yellowing to your skin or eyes, generally feeling worse or unwell or any other concerns you may have. Print Language: British Coding Level of Care Code ED Barrel Assembler Helper for Niko Wilkes
[2025-04-27 09:14] LABS: Hematocrit 39.3 % (36-47); Hemoglobin 12.70 g/dL (11.27-16.99); Mean Corpuscular HGB Conc 32.3 g/dL (30-55); Mean Corpuscular Hemoglobin 29.1 pg (27-33); Mean Corpuscular Volume 90.1 fl (85-98); Nucleated Red Blood Cells % 0 %; Platelet Count 298 10^3/cmm (157-399); Red Blood Count 4.36 10^6/uL (3.85-5.65); White Blood Count 6.72 10^3/uL (3.29-11.43)
[2025-04-27 09:15] LABS: Add Urine Microscopic? NO
[2025-04-27 09:24] LABS: Glucose Urine UA Negative (Normal); Nitrate Urine Negative (Negative); Specific Gravity, Urine 1.022 (1.005-1.030)
[2025-04-27 09:31] LABS: Alanine Aminotransferase 19 U/L (0-33); Albumin Level 4.2 g/dL (3.5-5.2); Alkaline Phosphatase 74 U/L (35-105); Anion Gap 16.1 (5-19); Aspartate Amino Transferase 22 U/L (0-32); Blood Urea Nitrogen 6 mg/dL (6-20); Calcium 9.1 mg/dL (8.5-10.5); Carbon Dioxide 22 mmol/L (22-29); Chloride 106 mmol/L (98-107); Creatinine Clr Calc Pharmacy 135.4484; Globulin 2.8 g/dL (1.3-4.6); Glucose 94 mg/dL (65-115); Lipase 29 U/L (13-60); Osmolality Calculated 287 mOsm/kg (285-295); Potassium 4.1 mmol/L (3.5-5.1); Sodium 140 mmol/L (136-145); Total Protein 7.0 g/dL (6.6-8.7)
[2025-04-27 09:39] LABS: HCG, Serum Qual Negative (Negative)
[2025-04-27 09:40] LABS: Charge for UA Resulting for Rev
--- OUTSIDE RECORDS SUMMARY | 2025-04-27 09:53 | XMS_ITS | Patient Health Record ---
Author Organization [facility] Address [address] [place] [address] Care Team Providers Care Welder Manufacture Name Role Phone PANIAGUA, [facility] Primary Care Provider [facility], [facility] Unavailable [phone] Allergies No Known Allergies Reason For Referral No Information Social History Tobacco Use: Social History Observation Description Date Details (start date - stop date) Former Smoker NA - NA Social History Depression Screening Social Info Question Answer Notes depression screening findings Findings Positive (9+ without suicidality) PHQ-9 Little interest or pleasure in doing things Not at all Feeling down, depressed, or hopeless Several day s Trouble falling or staying asleep, or sleeping t oo much Not at all Feeling tired or having little energy Not at all Poor appetite or overeating Not at all Feeling bad about yourself, or that you are a failure, or have let yourself or your family down Not at all Trouble concentrating on thi ngs, such as reading the newspaper or watching television Not at all Moving or speaking so slowly that other people could have noticed. Or the opposite ? being so fidgety or restless that you have been moving around a lot more than usual Not at all Thoughts that you would be b karsten off , or of hurting yourself in some way Not at all Total Score 1 Interpretation Minimal Depression Tobacco Use: Social Info Question Answer Notes xTobacco Use/Smoking Are you a former smoker How long has it been since you last smoked? 1-5 years Section Notes: Depression screen 08/24/2022 Depression screen completed 01/06/2024 score 1 Depression screen 08/24/2022 Problems Problem Type SNOMED Code ICD Code Onset Dates Problem Status W/U Status Risk Notes Problem Obesity (876840533) Obesity (BMI 30-39.9) (E66.9) Active confirmed Problem Depression (248974639) Other depression (F32.89) Active confirmed Problem Body mass index 30.00 to 34.99 (14255992686795 7) Body mass index [BMI] 32.0-32.9, adult (Z68.32) Active confirmed Problem Body mass index 30.00 to 34.99 (10955778459539 7) Body mass index [BMI] 34.0-34.9, adult (Z68.34) Active confirmed Plan Of Treatment No Information Medical (General) History Medical History History ICD Code PCOS Hospitalization History Reason Date(Month/Year) childbirth x1
[2025-04-27] MEDS: lidocaine 2% viscous 15 ML, aluminum-mag hydrox-simethicon 30 ML, sucralfate oral liq 1 GM PO (09:56)
[2025-04-27 10:00] VITALS: BP 111/65; PULSE 63; O2SAT 100
--- NOTE | 2025-04-29 07:35 | DCPLANNER ---
messaged gen surg for er f/u
== END 2025-04-27 11:22 | disposition home or self-care (01) ==
PROVIDERS: Emergency Provider Physician Assistant
DX: R10.11 Right upper quadrant pain (principal); Z87.891 Personal history of nicotine dependence
CPT/HCPCS: 36415; 76705; 80053; 81003; 83690; 84703; 85025; 99284; J9999